=== PATIENT | female | born 1945 | race Caucasian/White ===

== ENCOUNTER → 2016-05-07 | Outpatient (CLI) | payer OTHER, MEDICARE ==
[~2016-05-07] VITALS: Ht 154.9 cm; Wt 48.0 kg
[~2016-05-07] MED LIST: ALLEGRA30 MG PO; CALCIUM 500 +1 EACH PO; CO Q-1010 MG PO; GLUCOPHAGE XR,500 MG PO; LISINOPRIL10 MG PO; MULTIVITAMIN1 EAC2 PO; PRINIVIL5 MG PO; SPIRIVA1 INHALATI IH; SYMBICORT60 INHALAT IH; VENTOLIN HFA18 GM IH; VITAMIN C100 MG PO; ZESTRIL2.5 MG PO
[2016-05-07 11:10] VITALS: BP 116/58
== END | disposition home or self-care (01) ==
LOC: IVINF 10:52
DX: M85.80 Other specified disorders of bone density and structure, unspecified site (principal)
CPT/HCPCS: 96365; J3489

== ENCOUNTER 2017-03-07 15:58 | Inpatient (IN) | payer OTHER, MEDICARE ==
[~2017-03-07] VITALS: Ht 154.9 cm; Wt 45.6 kg
[2017-03-07 16:49] LABS: BASOPHIL (%) 0.2 % (0-1); EOSINOPHIL (%) 0.1 % (0-5); HEMATOCRIT 43.3 % (36.0-46.0); HEMOGLOBIN 14.1 G/DL (11.9-15.5); IMMATURE GRANULOCYTE (%) 0.3 % (0.0-0.7); LYMPHOCYTE (%) 9.6 % (15-42); LYMPHOCYTE COUNT 1.2 K/uL (1.0-2.8); MCH 31.3 PG (29.0-34.0); MCHC 32.6 G/DL (30.0-36.0); MONOCYTE (%) 6.9 % (3-12); MONOCYTE COUNT 0.9 K/uL (0-0.8); NEUTROPHIL (%) 82.9 % (45-76); NEUTROPHIL COUNT 10.6 K/uL (1.8-6.4); PLATELET COUNT 186 K/uL (156-360); RBC DIS.WIDTH-CV 12.2 % (11.8-14.6); RBC DIS.WIDTH-SD 43.7 % (39-53); RED BLOOD COUNT 4.51 M/uL (3.80-5.20); WHITE BLOOD COUNT 12.8 K/uL (4.1-10.2)
[2017-03-07 16:57] LABS: ALBUMIN 4.4 g/dL (3.2-4.8); CHLORIDE 96 mEq/L (99-109); POTASSIUM 4.1 mEq/L (3.7-5.4); SODIUM 138 mEq/L (136-147)
[2017-03-07 17:00] LABS: GLUCOSE 114 mg/dL (70-99); TOTAL PROTEIN 8.3 g/dL (6.4-8.3)
[2017-03-07 17:02] LABS: TOTAL BILIRUBIN 0.6 mg/dL (0.0-1.0)
[2017-03-07 17:03] LABS: ALKALINE PHOSPHATASE 63 IU/L (3-129)
[2017-03-07 17:04] LABS: CREATININE 0.6 mg/dL (0.6-1.3); GFR ESTIMATE (CALCULATED) > 59 mL/min/
[2017-03-07 17:05] LABS: AST (GOT) 17 IU/L (2-34); DIRECT BILIRUBIN 0.3 mg/dL (0.0-0.3); UREA NITROGEN (BUN) 10 mg/dL (9-23)
[2017-03-07 17:06] LABS: ALT (GPT) 13 IU/L (3-49)
[2017-03-07 17:07] LABS: LIPASE 4 U/L (1.0-51.0)
[2017-03-07 18:00] LABS: APPEARANCE SL.HAZY ((CLEAR)); BILIRUBIN NEGATIVE; BLOOD NEGATIVE; COLOR YELLOW ((YELLOW)); GLUCOSE (STRIP) NEGATIVE; KETONES 80; LEUKOCYTES SMALL; NITRITE NEGATIVE; PROTEIN (STRIP) 30
[2017-03-07 18:04] LABS: BACTERIA NONE SEEN /HPF; EPITHELIAL CELLS 1+ /HPF; MUCUS 1+ /LPF; RED BLOOD CELLS 0-5 /HPF (0-5)
[2017-03-07] MEDS ORDERED: FISH OIL 1,0001 EAC7 PO (18:10)
[2017-03-07 20:33] LABS: HEMATOCRIT 36.7 % (36.0-46.0); HEMOGLOBIN 12.2 G/DL (11.9-15.5); MCH 31.5 PG (29.0-34.0); MCHC 33.2 G/DL (30.0-36.0); MCV 94.8 FL (83-99); PLATELET COUNT 166 K/uL (156-360); RBC DIS.WIDTH-CV 12.3 % (11.8-14.6); RED BLOOD COUNT 3.87 M/uL (3.80-5.20); WHITE BLOOD COUNT 12.6 K/uL (4.1-10.2)
[2017-03-07 20:54] LABS: TROP-I INTERPRETATION NEGATIVE; TROPONIN-I < 0.01 ng/mL (0.0-0.30)
[2017-03-08 00:24] VITALS: BP 138/72
[2017-03-08 04:24] VITALS: BP 126/63
[2017-03-08 07:12] LABS: CHLORIDE 102 MEQ/L (99-109); CREATININE 0.4 MG/DL (0.6-1.3); GFR ESTIMATE (CALCULATED) > 59 mL/min/; GLUCOSE 153 mg/dL (70-99); POTASSIUM 4.6 MEQ/L (3.7-5.4); SODIUM 141 MEQ/L (136-147); UREA NITROGEN (BUN) 10 mg/dL (9-23)
[2017-03-08 07:25] LABS: TROP-I INTERPRETATION NEGATIVE; TROPONIN-I < 0.01 ng/mL (0.0-0.30)
[2017-03-08 08:10] VITALS: BP 100/53
[2017-03-08 13:10] LABS: TROP-I INTERPRETATION NEGATIVE; TROPONIN-I < 0.01 ng/mL (0.0-0.30)
[2017-03-08 15:48] VITALS: BP 102/55
[2017-03-08 20:00] VITALS: BP 98/55
[2017-03-09] VITALS (7 sets, daily range): BP systolic 97–118; BP diastolic 53–60
[2017-03-09 07:10] LABS: BASOPHIL (%) 0.1 % (0-1); EOSINOPHIL (%) 0 % (0-5); HEMATOCRIT 37.8 % (36.0-46.0); IMMATURE GRANULOCYTE (%) 0.6 % (0.0-0.7); LYMPHOCYTE (%) 6.4 % (15-42); MCH 30.8 PG (29.0-34.0); MCHC 31.7 G/DL (30.0-36.0); MCV 96.9 FL (83-99); MONOCYTE (%) 4.1 % (3-12); MONOCYTE COUNT 0.6 K/uL (0-0.8); NEUTROPHIL (%) 88.8 % (45-76); NEUTROPHIL COUNT 13.7 K/uL (1.8-6.4); RBC DIS.WIDTH-CV 12.2 % (11.8-14.6); RBC DIS.WIDTH-SD 43.8 % (39-53); WHITE BLOOD COUNT 15.4 K/uL (4.1-10.2)
[2017-03-09 07:11] LABS: PLATELET COUNT 222 K/uL (156-360)
[2017-03-09 07:45] LABS: ALBUMIN 3.4 G/DL (3.2-4.8); ALKALINE PHOSPHATASE 48 IU/L (3-129); ALT (GPT) 11 IU/L (3-49); AST (GOT) 16 IU/L (2-34); CHLORIDE 99 MEQ/L (99-109); CREATININE 0.5 MG/DL (0.6-1.3); DIRECT BILIRUBIN 0.1 mg/dL (0.0-0.3); GFR ESTIMATE (CALCULATED) > 59 mL/min/; GLUCOSE 199 mg/dL (70-99); SODIUM 136 MEQ/L (136-147); TOTAL BILIRUBIN 0.3 MG/DL (0.0-1.0); TOTAL PROTEIN 6.1 G/DL (6.4-8.3); UREA NITROGEN (BUN) 11 mg/dL (9-23)
[2017-03-09 07:46] LABS: LIPASE < 3 U/L (1.0-51.0)
[2017-03-10 08:00] VITALS: BP 115/66
[2017-03-10 10:59] VITALS: BP 126/61
[2017-03-10 16:00] VITALS: BP 125/65
[2017-03-10 19:35] VITALS: BP 121/56
[2017-03-10 23:42] VITALS: BP 123/60
[2017-03-11 08:00] VITALS: BP 137/67
[2017-03-11 15:43] VITALS: BP 134/64
[2017-03-11 23:57] VITALS: BP 131/67
[2017-03-12 07:38] VITALS: BP 143/58
[2017-03-12 08:35] LABS: C DIFF TOXIN NEGATIVE (NEGATIVE)
[2017-03-12 09:01] LABS: BICARBONATE 45.5 mEq/L (22-26); CARBOXY HGB 1.1 % (0-5); METHEMOGLOBIN 1.4 % (0-1.5); PCO2 67 mm Hg (35-45); PO2 57 mm Hg (80-100); pH 7.44 (7.35-7.45)
[2017-03-12 09:02] LABS: COMMENTS - BLOOD GASES A+C+; DEVICE NC; O2 FLOW 6 L/MIN; SITE RR; TOTAL RESP RATE 20 resp/min
[2017-03-12 09:15] LABS: BASOPHIL (%) 0.1 % (0-1); EOSINOPHIL (%) 0 % (0-5); HEMATOCRIT 38.8 % (36.0-46.0); HEMOGLOBIN 12.5 G/DL (11.9-15.5); IMMATURE GRANULOCYTE (%) 0.9 % (0.0-0.7); LYMPHOCYTE (%) 6.4 % (15-42); LYMPHOCYTE COUNT 0.7 K/uL (1.0-2.8); MCH 31.4 PG (29.0-34.0); MCHC 32.2 G/DL (30.0-36.0); MCV 97.5 FL (83-99); MONOCYTE (%) 4.8 % (3-12); MONOCYTE COUNT 0.5 K/uL (0-0.8); NEUTROPHIL (%) 87.8 % (45-76); NEUTROPHIL COUNT 9.5 K/uL (1.8-6.4); PLATELET COUNT 271 K/uL (156-360); RBC DIS.WIDTH-CV 11.9 % (11.8-14.6); RBC DIS.WIDTH-SD 43.2 % (39-53); RED BLOOD COUNT 3.98 M/uL (3.80-5.20); WHITE BLOOD COUNT 10.9 K/uL (4.1-10.2)
[2017-03-12 09:43] LABS: ALBUMIN 3.8 g/dL (3.2-4.8); CHLORIDE 94 mEq/L (99-109); POTASSIUM 3.7 mEq/L (3.7-5.4); SODIUM 141 mEq/L (136-147)
[2017-03-12 09:45] LABS: GLUCOSE 173 mg/dL (70-99)
[2017-03-12 09:46] LABS: TOTAL PROTEIN 6.5 g/dL (6.4-8.3)
[2017-03-12 09:48] LABS: TOTAL BILIRUBIN 0.3 mg/dL (0.0-1.0)
[2017-03-12 09:49] LABS: ALKALINE PHOSPHATASE 56 IU/L (3-129); CREATININE 0.6 mg/dL (0.6-1.3); GFR ESTIMATE (CALCULATED) > 59 mL/min/
[2017-03-12 09:50] LABS: UREA NITROGEN (BUN) 10 mg/dL (9-23)
[2017-03-12 09:51] LABS: DIRECT BILIRUBIN 0.2 mg/dL (0.0-0.3)
[2017-03-12 09:52] LABS: ALT (GPT) 30 IU/L (3-49); AST (GOT) 26 IU/L (2-34)
[2017-03-12 15:35] VITALS: BP 135/69
[2017-03-13 00:17] VITALS: BP 128/72
[2017-03-13 15:47] VITALS: BP 162/75
[2017-03-14 00:28] VITALS: BP 155/68
[2017-03-14 07:20] VITALS: BP 172/77
[2017-03-14 09:13] LABS: MCH 30.4 PG (29.0-34.0); PLATELET COUNT 314 K/uL (156-360); RBC DIS.WIDTH-CV 11.9 % (11.8-14.6); RBC DIS.WIDTH-SD 41.6 % (39-53); WHITE BLOOD COUNT 12.8 K/uL (4.1-10.2)
[2017-03-14 09:21] LABS: HEMOGLOBIN 14.7 G/DL (11.9-15.5); RED BLOOD COUNT 4.84 M/uL (3.80-5.20)
[2017-03-14 09:46] LABS: CREATININE 0.5 MG/DL (0.6-1.3); GFR ESTIMATE (CALCULATED) > 59 mL/min/; POTASSIUM 3.8 MEQ/L (3.7-5.4); SODIUM 142 MEQ/L (136-147); UREA NITROGEN (BUN) 9 mg/dL (9-23)
[2017-03-14 09:48] LABS: CHLORIDE 89 MEQ/L (99-109); GLUCOSE 106 mg/dL (70-99)
[2017-03-14 09:50] LABS: CARBON DIOXIDE (BICARBONATE) > 40.0 MEQ/L (20-31)
[2017-03-14 16:07] VITALS: BP 131/60
[2017-03-15 00:30] VITALS: BP 145/67
[2017-03-15 04:00] VITALS: BP 138/68
[2017-03-15 08:16] VITALS: BP 178/81
[2017-03-15] MEDS ORDERED: AZITHROMYCIN500 M1 PO (11:00)
[2017-03-15] MEDS ORDERED: MYCOSTATIN 100,60 ML PO (11:00)
[2017-03-15] MEDS ORDERED: BENTYL20 MG PO (11:00)
[2017-03-15] MEDS ORDERED: PREDNISONE10 MG PO ×2 (11:03)
[2017-03-15] MEDS ORDERED: PREDNISONE20 MG PO ×2 (11:03)
== END 2017-03-15 13:18 | disposition home or self-care (01) | DRG 444 ==
LOC: EME 15:58 → 2EASTP 19:47 → EDOF 19:47 → ENRESERV 19:50 → 2EASTP 21:40 → ENPENDDIS 03-15 → 2EASTP 03-15 13:18
PROVIDERS: Hospitalist; Internal Medicine Pulmonary Disease; Physician Assistant; Surgery
DX: K80.67 Calculus of gallbladder and bile duct with acute and chronic cholecystitis with obstruction (principal); J96.21 Acute and chronic respiratory failure with hypoxia; J18.0 Bronchopneumonia, unspecified organism; G89.29 Other chronic pain; M54.9 Dorsalgia, unspecified; M81.0 Age-related osteoporosis without current pathological fracture; J44.1 Chronic obstructive pulmonary disease with (acute) exacerbation; J44.0 Chronic obstructive pulmonary disease with (acute) lower respiratory infection; E11.9 Type 2 diabetes mellitus without complications; K80.00 Calculus of gallbladder with acute cholecystitis without obstruction; F17.200 Nicotine dependence, unspecified, uncomplicated; R09.02 Hypoxemia; I10 Essential (primary) hypertension; F43.23 Adjustment disorder with mixed anxiety and depressed mood; Z88.8 Allergy status to other drugs, medicaments and biological substances; Z90.710 Acquired absence of both cervix and uterus; Z68.1 Body mass index [BMI] 19.9 or less, adult; Z88.6 Allergy status to analgesic agent; Z99.81 Dependence on supplemental oxygen; B37.9 Candidiasis, unspecified
CPT/HCPCS: 36600; 71045; 71046; 71260; 72129; 72132; 74177; 78227; 80048; 80076; 81003; 82803; 82948; 83605; 83690; 84484; 85025; 85027; 87040; 87070; 87086; 87106; 87205; 87493; 87502; 94640; 94640 76; 94667; 94668; 94799; 99202; 99281; 99285; A9537; J0456; J0696; J1170; J1644; J1650; J1815; J2060; J2405; J2543; J2930; J3010; J7030; J7050; J7512; S0028

== ENCOUNTER 2017-05-05 07:10 | Day surgery (SDC) | payer OTHER, MEDICARE ==
[~2017-05-05] VITALS: Ht 154.9 cm; Wt 43.1 kg
[~2017-05-05 07:10] MED LIST changes: +AZITHROMYCIN500 M1 PO; +BENTYL20 MG PO; +FISH OIL 1,0001 EAC7 PO; +MYCOSTATIN 100,60 ML PO; +PREDNISONE10 MG PO; +PREDNISONE20 MG PO
[2017-05-05 08:22] VITALS: BP 112/55
[2017-05-05] MEDS ORDERED: NORCO 5/3251 TABLET PO (10:45)
[2017-05-05 12:12] VITALS: BP 147/64
[2017-05-05 12:15] VITALS: BP 130/60
== END 2017-05-05 13:22 | disposition home or self-care (01) ==
LOC: SDC 07:10
PROVIDERS: Surgery
DX: K80.10 Calculus of gallbladder with chronic cholecystitis without obstruction (principal); K66.0 Peritoneal adhesions (postprocedural) (postinfection); J44.9 Chronic obstructive pulmonary disease, unspecified; E11.9 Type 2 diabetes mellitus without complications; I10 Essential (primary) hypertension; E78.5 Hyperlipidemia, unspecified; F17.210 Nicotine dependence, cigarettes, uncomplicated; Z79.84 Long term (current) use of oral hypoglycemic drugs
CPT/HCPCS: 82948; 88304; 93005; J0131; J1100; J1170; J2405; S0020; S0074

== ENCOUNTER → 2017-07-11 | Outpatient (CLI) | payer OTHER, MEDICARE ==
[~2017-07-11] VITALS: Ht 154.9 cm; Wt 96.0 kg
[~2017-07-11] MED LIST changes: +NORCO 5/3251 TABLET PO
[2017-07-11 10:39] VITALS: BP 105/56
== END | disposition home or self-care (01) ==
LOC: IVINF 10:30
DX: M81.0 Age-related osteoporosis without current pathological fracture (principal)
CPT/HCPCS: 96365; J3489